=== PATIENT | male | born 1985 | race African-American/Black ===

== ENCOUNTER 2017-01-05 12:11 | Emergency (ER) | payer OTHER ==
[~2017-01-05] VITALS: Ht 185.4 cm; Wt 79.4 kg
[2017-01-05 12:13] VITALS: BP 111/63
[2017-01-05] MEDS ORDERED: FLAGYL500 MG PO (12:35)
[2017-01-05 13:02] LABS: URINE BILIRUBIN NEGATIVE (Negative); URINE BLOOD TRACE (Negative); URINE COLOR YELLOW; URINE GLUCOSE-RANDOM* NEGATIVE (Negative); URINE KETONES NEGATIVE (Negative); URINE NITRITE NEGATIVE (Negative); URINE PROTEIN (DIPSTICK) NEGATIVE (Negative); URINE SPECIFIC GRAVITY 1.015 (1.003-1.035)
== END 2017-01-05 12:36 | disposition home or self-care (01) ==
LOC: ER 12:11
PROVIDERS: Physician Assistant
DX: Z20.2 Contact with and (suspected) exposure to infections with a predominantly sexual mode of transmission (principal)